=== PATIENT | female | born 1940 | race Caucasian/White ===

== ENCOUNTER → 2021-01-21 | Day surgery (SDC) | payer MEDICARE, OTHER ==
[~2021-01-21] MED LIST: ACETAMINOPHEN500 M1 PO; ALLEGRA ALLERG180 MG PO; ASCORBIC ACID500 MG PO; CALCIUM 600+D31 EACH PO; EYLEA OD; FIBERCON625 MG PO; FLINTSTONES1 EACH PO; FLONASE ALLER15.8 ML; LASIX40 MG PO; LEVOTHYROXINE50 MCG PO; LOSARTAN POTASS25 MG PO; MAGNESIUM400 M2 PO; MELOXICAM15 MG PO; METOPROLOL SUCC25 MG PO; OMEPRAZOLE40 MG PO; PERCOCET 5-3251 EACH PO; POTASSIUM CHLO20 ME2 PO; PRAVASTATIN SOD10 M1 PO; PRESERVISION A1 EAC2 PO; PROBIOTIC1 EAC2 PO; VITAMIN B-121000 MC1 PO
[2021-01-21 11:25] LABS: BUN/CREAT RATIO (CALC) 24.1 RATIO; CREATININE 0.79 mg/dL (0.51-0.95); POTASSIUM 3.3 mmol/L (3.5-5.1)
== END | disposition home or self-care (01) ==
LOC: FAS 09:59
PROVIDERS: Orthopaedic Surgery
DX: M16.12 Unilateral primary osteoarthritis, left hip (principal); M17.0 Bilateral primary osteoarthritis of knee; I11.0 Hypertensive heart disease with heart failure; I50.9 Heart failure, unspecified; G47.30 Sleep apnea, unspecified; K21.9 Gastro-esophageal reflux disease without esophagitis; K25.9 Gastric ulcer, unspecified as acute or chronic, without hemorrhage or perforation; E78.00 Pure hypercholesterolemia, unspecified; H35.30 Unspecified macular degeneration; Z88.0 Allergy status to penicillin; Z98.890 Other specified postprocedural states; Z79.899 Other long term (current) drug therapy; Z99.81 Dependence on supplemental oxygen; Z20.822 Contact with and (suspected) exposure to COVID-19
CPT/HCPCS: 36415; 76000; 77002; 80048; J1040; J2001; J2704; J7120; Q9967

== ENCOUNTER 2021-09-09 06:39 | Day surgery (SDC) | payer MEDICARE, OTHER ==
[~2021-09-09] VITALS: Ht 157 cm; Wt 77.0 kg
[~2021-09-09 06:39] MED LIST changes: +STOOL SOFTENER100 MG PO
[2021-09-09] MEDS ORDERED: PERCOCET 5-3251 EACH PO (07:04)
--- NOTE | 2021-09-09 12:58 | NUR ---
PT HAD A SUZETTE THIS DATE. PT. HAS A ROLLING WALKER. SHE REQUEST ZAIDA/WESLEY (PAGE) . PT. WILL D/C HOME WITH SON.
[2021-09-10 05:51] LABS: BASOPHIL 0.2 % (0-2); EOSINOPHIL 0.4 % (0-7); HCT 31.1 % (37.0-47.0); HGB 9.9 g/dl (12.5-16.0); LYMPHOCYTE 23.9 % (15-48); MCH 30.9 pg (25.0-31.0); MCHC 31.8 g/dL (32.0-36.0); MCV 97.2 fL (78.0-100.0); MONOCYTE 9.9 % (0-12); MPV 9.3 fL (6.0-9.5); NEUTROPHIL 65.2 % (41-80); NRBC 0; PLT 265 K/uL (150-400); RDW 14.8 % (11.5-14.0); WBC 10.1 K/uL (4.0-10.5)
[2021-09-10 06:10] LABS: BUN/CREAT RATIO (CALC) 25.6 RATIO; CREATININE 0.78 mg/dL (0.51-0.95); POTASSIUM 4.1 mmol/L (3.5-5.1)
[2021-09-10] MEDS ORDERED: ASPIRIN81 MG PO (09:20)
[2021-09-10] MEDS ORDERED: FEOSOL325 MG PO (09:20)
== END 2021-09-10 12:49 | disposition home health service (06) ==
LOC: FAS 06:39 → FOR 08:30 → FAS 08:30 → FMS 08:46 → FOR 09:00 → FAS 09-10 12:49
PROVIDERS: Orthopaedic Surgery
DX: M16.12 Unilateral primary osteoarthritis, left hip (principal); I10 Essential (primary) hypertension; E03.9 Hypothyroidism, unspecified; K21.9 Gastro-esophageal reflux disease without esophagitis; E78.00 Pure hypercholesterolemia, unspecified; G47.30 Sleep apnea, unspecified; Z99.89 Dependence on other enabling machines and devices; Z88.0 Allergy status to penicillin; Z88.2 Allergy status to sulfonamides; Z88.8 Allergy status to other drugs, medicaments and biological substances; Z79.891 Long term (current) use of opiate analgesic; Z79.899 Other long term (current) drug therapy
CPT/HCPCS: 36415; 73501; 76000; 80048; 85025; 86850; 86900; 86901; 94010; 94762; 97110; 97163; 97166; 97530-GP; 97535; C1713; C1776; J0171; J1170; J1885; J2270; J2370; J2704; J2795; J3010; J3370; J7050; J7120